=== PATIENT | female | born 1945 | race Caucasian/White ===

== ENCOUNTER → 2017-10-16 | Outpatient (CLI) | payer OTHER ==
[~2017-10-16] MED LIST: ALBU4; CARV25 PO; CONEST.3 PO; ESTR2 PO; FLUO20 PO; HYDRA25 PO; LANS30EC PO; LOSA50 PO; Mirapex0.25 MG; OMEP40CA12 PO; SIMV10
== END | disposition home or self-care (01) ==
LOC: LAB 16:02 → LAB SHORT 16:02
DX: N89.8 Other specified noninflammatory disorders of vagina (principal)
CPT/HCPCS: 87070

== ENCOUNTER 2021-02-26 13:20 | Day surgery (SDC) | payer OTHER ==
[~2021-02-26] VITALS: Ht 165.1 cm; Wt 90.1 kg
[2021-02-26] MEDS ORDERED: VENL37.5ER (14:51)
--- NOTE | 2021-02-26 15:43 | NUR ---
02/26/21 1543 Corrine Black TIME OUT AND SIGHT CHECK FOR ISB DONE WITH DR KEANE
== END 2021-02-26 17:43 | disposition home or self-care (01) ==
LOC: ORSCSDS 13:20
PROVIDERS: Orthopaedic Surgery
PROC: 0LM14ZZ Reattachment of Right Shoulder Tendon, Percutaneous Endoscopic Approach (ICD-10-PCS; principal; 2021-02-26 15:00)
PROC: 0RBJ4ZZ Excision of Right Shoulder Joint, Percutaneous Endoscopic Approach (ICD-10-PCS; principal; 2021-02-26 15:00)
PROC: 0RNJ4ZZ Release Right Shoulder Joint, Percutaneous Endoscopic Approach (ICD-10-PCS; principal; 2021-02-26 15:00)
DX: M75.121 Complete rotator cuff tear or rupture of right shoulder, not specified as traumatic (principal); M75.21 Bicipital tendinitis, right shoulder; M75.41 Impingement syndrome of right shoulder; I10 Essential (primary) hypertension; J45.909 Unspecified asthma, uncomplicated; F32.A Depression, unspecified; Z79.899 Other long term (current) drug therapy; E66.9 Obesity, unspecified; Z68.33 Body mass index [BMI] 33.0-33.9, adult
CPT/HCPCS: C1713; J0171; J0690; J1100; J1885; J2250; J2405; J2704; J2710; J3010; J7120

== ENCOUNTER 2023-05-03 16:08 | Emergency (ER) | payer OTHER ==
[~2023-05-03] VITALS: Ht 165.1 cm; Wt 87.5 kg
[~2023-05-03 16:08] MED LIST changes: +VENL37.5ER
[2023-05-03] MEDS ORDERED: ASPERFLEX1 EACH TOP (19:24)
[2023-05-03 19:39] VITALS: BP 154/88
== END 2023-05-03 19:41 | disposition home or self-care (01) ==
LOC: ER 16:08
DX: M43.06 Spondylolysis, lumbar region (principal); I10 Essential (primary) hypertension; Z88.2 Allergy status to sulfonamides; Z91.040 Latex allergy status; Z79.899 Other long term (current) drug therapy; Z79.51 Long term (current) use of inhaled steroids; Z87.891 Personal history of nicotine dependence
CPT/HCPCS: 72100

== ENCOUNTER 2024-02-10 10:26 | Day surgery (SDC) | payer OTHER ==
[~2024-02-10] VITALS: Ht 165.1 cm; Wt 85.1 kg
[2024-02-10] VITALS (11 sets, daily range): BP systolic 131–180; BP diastolic 64–90
[~2024-02-10 10:26] MED LIST changes: +ASPERFLEX1 EACH TOP; +ASPI81CH PO; +Crestor40 MG PO; -Mirapex0.25 MG; +Mirapex0.25 MG PO; +OMEP20ER PO; -OMEP40CA12 PO; +PRAMIPEXOLE DI0.5 M1 PO; +Prozac40 MG PO; +SERT25 PO; +VENL150ER PO; -VENL37.5ER; +XYZAL5 MG PO; +ZOCOR20 MG PO; +ZYRTEC10 M2 PO
[2024-02-10] MEDS ORDERED: Tranexamic Acid 1,000 MG in NS 100 ML IV SCH (11:35)
[2024-02-10] MEDS ORDERED: OxyCODONE HCL 10 MG TABCR PO SCH (11:35)
[2024-02-10] MEDS ORDERED: Chlorhexidine Mouth Care 15 ML UDC MT SCH (11:35)
[2024-02-10] MEDS ORDERED: CeFAZolin Sodium 2,000 MG in NS 100 ML IV SCH ×2 (11:35→22:40)
[2024-02-10] MEDS ORDERED: Lactated Ringer's 1,000 ML IV SCH ×2 (11:35→13:20)
[2024-02-10] MEDS ORDERED: Acetaminophen 500 MG Tab PO SCH ×2 (11:35→16:00)
[2024-02-10] MEDS ORDERED: Ropivacaine 0.5% HCl/Pf 123.125 MG,EPINEPHrine HCL 0.25 MG,Ketorolac Tromethamine 15 MG... INFIL SCH (11:35)
[2024-02-10] MEDS ORDERED: FLU VACC TS2024-25(6MOS UP)/PF 45 MCG/0.5 ML SYRINGE IM SCH (13:10)
[2024-02-10] MEDS ORDERED: HYDROmorphone HCl/Pf 1MG SYR IV PRN (13:10)
[2024-02-10] MEDS ORDERED: DiphenhydrAMINE HCL 25 MG Cap PO PRN (13:10)
[2024-02-10] MEDS ORDERED: propofoL 20 ML IV ONE (13:15)
[2024-02-10] MEDS ORDERED: Bisacodyl 10 MG Supp PR PRN (13:15)
[2024-02-10] MEDS ORDERED: OxyCODONE HCL 5 MG TAB PO PRN ×2 (13:15)
[2024-02-10] MEDS ORDERED: Promethazine HCl 25 MG Tab PO PRN (13:15)
--- NOTE | 2024-02-10 13:19 | NUR ---
History, Chart, Medications and Allergies reviewed before start of procedure. Patient up to Ambulate independently. Gait steady. Pre-Op teaching done. Pt verbalizes understanding. Patient confirms NPO status and agrees with scheduled surgery. Patient reports completing Chlorhexadine shower X2 prior to admission to hospital. Surgical site prepped with 2% Chlorhexidine cloth wipe.
[2024-02-10] MEDS ORDERED: Magnesium Hydroxide Conc 10 ML UDC PO PRN (13:20)
[2024-02-10] MEDS ORDERED: Metoclopramide HCl 5MG / ML 2ML Vial IV PRN (13:20)
[2024-02-10] MEDS ORDERED: Ondansetron HCl 2 MG / ML 2ML Vial IV PRN (13:20)
[2024-02-10] MEDS ORDERED: propofoL 100 ML IV ONE (14:22)
[2024-02-10] MEDS ORDERED: Ondansetron HCl 2 MG / ML 2ML Vial ONE (14:44)
[2024-02-10] MEDS ORDERED: Dexamethasone Sod Phos 10 MG/ML 1ML VIAL ONE (14:44)
--- NOTE | 2024-02-10 17:00 | NUR ---
ARRIVAL NOTE PT INTO ROOM FROM PACU. AWAKE AND RESONSIVE, STILL REPORTING SOME NUMBNESS FROM SPINAL, ABLE TO WIGGLE TOES BUT NOT LIFT LEGS YET. VSS. DENIES PAIN AND NAUSEA. DRESSING TO R LEG C/D/I, CIRCULATION INTACT TO R FOOT. IV FLUIDS RUNNING ORDERED. PT TOLERATING PO SIPS OF WATER AND CRACKERS. FAMILY AT BEDSIDE. 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
[2024-02-10] MEDS ORDERED: FLUoxetine HCL 20 MG CAP PO SCH (18:00)
[2024-02-10] MEDS ORDERED: Pramipexole DI-HCL 1 Mg Tab PO SCH (18:00)
[2024-02-10] MEDS ORDERED: Ketorolac Tromethamine 15mg Vial IV SCH (18:00)
[2024-02-10] MEDS ORDERED: Venlafaxine HCl 75 MG CapCR PO SCH (18:00)
[2024-02-10] MEDS ORDERED: Loratadine 10 MG Tab PO SCH (18:00)
[2024-02-10] MEDS ORDERED: Omeprazole 20 MG CapCR PO SCH (21:00)
[2024-02-10] MEDS ORDERED: Rosuvastatin Calcium 10 MG Tab PO SCH (21:00)
[2024-02-10] MEDS ORDERED: Docusate Sodium 100 MG Cap PO SCH (21:00)
[2024-02-11 03:20] VITALS: BP 129/68
--- NOTE | 2024-02-11 04:42 | NUR ---
NOC SUMMARY- PT PAIN HAS BEEN MANAGED WELL. PT IS AMBULATORY W/ GB AND FWW. PT DENIES N/T. PT VOIDING WELL. PT DRESSING C/D/I W/ POLAR PACK ON. PT HAS BEEN RESTING COMFORTABLY. CALL LIGHT IN REACH.
[2024-02-11 05:11] LABS: BASOPHILS ABSOLUTE AUTO 0.01 K/mm3 (0.00-0.23); BASOPHILS PERCENT AUTO 0 % (0-2); EOSINOPHILS PERCENT AUTO 0 % (0-6); Hematocrit 35.2 % (33.0-51.0); Hemoglobin 11.6 g/dL (11.5-16.0); IMMATURE GRAN ABSOLUTE AUTO 0.06 K/mm3 (0.00-0.10); IMMATURE GRAN PERCENT AUTO 1 % (0-1); LYMPHOCYTES ABSOLUTE AUTO 0.78 K/mm3 (0.84-5.20); LYMPHOCYTES PERCENT AUTO 7 % (21-46); MONOCYTES ABSOLUTE AUTO 0.24 K/mm3 (0.16-1.47); MONOCYTES PERCENT AUTO 2 % (4-13); Mean Corpuscular HGB 30.7 pg (26.0-34.0); Mean Corpuscular Volume 93 fL (80-100); Mean Platelet Volume 9.6 fL (9.1-12.4); NEUTROPHILS ABSOLUTE AUTO 10.17 K/mm3 (1.96-9.15); NEUTROPHILS PERCENT AUTO 90 % (41-73); Platelet Count 238 K/mm3 (150-400); RDW Coefficient Variation 13.2 % (11.7-14.2); RDW Standard Deviation 45.3 fL (35.1-46.3); Red Blood Cell Count 3.78 M/mm3 (3.80-5.20); White Blood Cell Count 11.26 K/mm3 (4.00-11.30)
[2024-02-11 05:46] LABS: Calcium, Blood 9.3 mg/dL (8.5-10.1); Creatinine, Blood 0.73 mg/dL (0.40-1.00); Potassium, Blood 3.9 mmol/L (3.5-5.5)
[2024-02-11 07:06] VITALS: BP 131/61
[2024-02-11] MEDS ORDERED: ASPI81CH PO (07:28)
[2024-02-11] MEDS ORDERED: Aspirin 81 MG Chew PO SCH (09:00)
--- NOTE | 2024-02-11 10:54 | NUR ---
DISCHARGE SUMMARY POD1 R TKA, A/OX4, VSS, TOLERATING PO, VOIDING, PAIN WELL MANAGED, AMBULATING WELL, AQUACELL TO R KNEE C/D/I, JAKY WRAP OVER AQUACELL, COMPRESSION SOCK ON HER LEFT LEG AND SHE WAS PROVIDED ANOTHER SET TO HAVE ONE ON BOTH LEGS. DISCUSSED DISCHARGE INSTRUCTIONS INCLUDING HOME CARE, MEDICATIONS, AND FOLLOW UP APPOINTMENTS. NO QUESTIONS AT THIS TIME, IV ACCESS REMOVED DURING DC INSTRUCTION DISCUSSION. ESCORTED OUT VIA WC TO PRIVATE AUTO TO GO HOME.
== END 2024-02-11 10:49 | disposition home or self-care (01) ==
LOC: ORSCMMR 10:26 → ORD 12:30 → ORSCMMR 12:30 → ORD 13:45 → SURS 17:08 → ORSCMMR 02-11 10:49 → ORD 02-19 07:30
PROVIDERS: Orthopaedic Surgery
PROC: 8E0Y0CZ Robotic Assisted Procedure of Lower Extremity, Open Approach (ICD-10-PCS; principal; 2024-02-10 12:30)
PROC: 0SRC0JA Replacement of Right Knee Joint with Synthetic Substitute, Uncemented, Open Approach (ICD-10-PCS; principal; 2024-02-10 12:30)
DX: M17.11 Unilateral primary osteoarthritis, right knee (principal); I10 Essential (primary) hypertension; E78.5 Hyperlipidemia, unspecified; K21.9 Gastro-esophageal reflux disease without esophagitis; F41.9 Anxiety disorder, unspecified; J45.909 Unspecified asthma, uncomplicated; Z79.899 Other long term (current) drug therapy; E66.9 Obesity, unspecified; Z68.32 Body mass index [BMI] 32.0-32.9, adult
CPT/HCPCS: 36415; 73560-RT; 80048; 85025; 97110; 97116; 97161; 97530; A9270; C1713; C1776; J0171; J0690; J0735; J1100; J1885; J2405; J2704; J2795; J7120